=== PATIENT | female | born 1960 | race Caucasian/White ===

== ENCOUNTER → 2019-08-06 14:43 | Outpatient (CLI) | payer OTHER, SELFPAY ==
--- NOTE | 2019-08-06 | DI.MG.S_ITS ---
UNILATERAL LEFT DIGITAL DIAGNOSTIC MAMMOGRAM 3D/2D WITH ADDITIONAL VIEWS: 08/06/2019 CLINICAL: Additional evaluation requested from prior study. Comparison is made to exam dated: 06/29/2019 mammogram - [facility]. There are scattered fibroglandular elements in left breast. There is an oval 6 mm mass in the left breast at 2 o'clock middle depth. This is confirmed with spot compression, but not convincingly seen in other additional views. No other significant masses or calcifications are seen in the breast. IMPRESSION: INCOMPLETE: NEEDS ADDITIONAL IMAGING EVALUATION The oval mass in the left breast is indeterminate. An ultrasound is recommended. This was performed immediately following this exam. This exam was interpreted at Station ID: [id number]. NOTE: For mammograms, a report in lay terms will be sent to the patient. Approximately 15% of breast malignancies will not be visualized mammographically. In the management of a palpable breast mass, a negative mammogram must not discourage biopsy of a clinically suspicious lesion. Electronically Signed By: Jina paz/:08/06/2019 16:23:52 ACR BI-RADS Category 0: Incomplete 3340F
--- NOTE | 2019-08-06 | DI.US.S_ITS ---
LIMITED ULTRASOUND OF LEFT BREAST: 08/06/2019 CLINICAL: Additional evaluation requested from prior study. Comparison is made to exams dated: 08/06/2019 mammogram [facility] and 06/29/2019 mammogram - [facility]. Color flow and real-time ultrasound of the left breast 2 o'clock region were performed. Rose scale images of the real-time examination were reviewed. There is a benign 0.5 cm x 0.2 cm x 0.2 cm oval lymph node in the subdermal left breast at 2 o'clock middle depth 7 cm from the nipple. This oval lymph node displays fatty hilum. This correlates with mammography findings. Color flow imaging demonstrates that there is no vascularity present. IMPRESSION: BENIGN There is no sonographic evidence of malignancy. The 0.5 cm x 0.2 cm x 0.2 cm subdermal oval lymph node in the left breast is benign. Return to annual mammogram screening schedule is recommended. Findings and recommendations were conveyed to the patient at time of exam. This exam was interpreted at Station ID: [id number]. Electronically Signed By: Jina paz/:08/06/2019 16:25:40 letter sent: Normal Exam Ultrasound BI-RADS: 2 Benign
== END ==
PROVIDERS: Visit Provider Family Medicine
DX: R92.8 Other abnormal and inconclusive findings on diagnostic imaging of breast (principal)
CPT/HCPCS: 76642; 77065; G0279

== ENCOUNTER → 2020-08-30 12:22 | Outpatient (CLI) | payer OTHER, SELFPAY ==
--- NOTE | 2020-08-30 | DI.MG.S_ITS ---
BILATERAL DIGITAL SCREENING MAMMOGRAM 3D/2D WITH CAD: 08/30/2020 CLINICAL: Routine screening. Comparison is made to exams dated: 06/29/2019 mammogram - [facility], 08/06/2019 mammogram, and 08/06/2019 ultrasound [facility]. There are scattered fibroglandular elements in both breasts. Current study was also evaluated with a Computer Aided Detection (CAD) system. No significant masses, calcifications, or other findings are seen in either breast. There has been no significant interval change. IMPRESSION: NEGATIVE There is no mammographic evidence of malignancy. A 1 year screening mammogram is recommended. This exam was interpreted at Station ID: [id number]. NOTE: For mammograms, a report in lay terms will be sent to the patient. Approximately 15% of breast malignancies will not be visualized mammographically. In the management of a palpable breast mass, a negative mammogram must not discourage biopsy of a clinically suspicious lesion. Electronically Signed By: Harish moura/tru:08/30/2020 13:02:01 letter sent: Normal Exam ACR BI-RADS Category 1: Negative 3341F
== END ==
PROVIDERS: PCP Student in an Organized Health Care Education/Training Program; Referring Provider Student in an Organized Health Care Education/Training Program; Visit Provider Student in an Organized Health Care Education/Training Program
DX: Z12.31 Encounter for screening mammogram for malignant neoplasm of breast (principal); M85.852 Other specified disorders of bone density and structure, left thigh; Z78.0 Asymptomatic menopausal state; E07.9 Disorder of thyroid, unspecified; Z87.891 Personal history of nicotine dependence
CPT/HCPCS: 77063; 77067; 77080

== ENCOUNTER 2020-09-12 16:18 | Emergency (ER) | payer OTHER, SELFPAY ==
[2020-09-12 16:20] VITALS: BP 222/115; PULSE 68; RESP 18; TEMP 36.9; O2SAT 100
--- NOTE | 2020-09-12 16:41 | DI.RAD.S_ITS ---
PROCEDURE: XR SHOULDER LT MIN 2V INDICATIONS: shoulder pain TECHNIQUE: 3 views of the shoulder were acquired. COMPARISON: None. FINDINGS: Bones: No fractures or dislocations. No suspicious bony lesions. Visualized ribs appear intact. Soft tissues: No suspicious soft tissue calcifications. IMPRESSION: Mild arthritic change is seen at the AC joint. No trauma is found. Dictated by: Krishna Chavez M.D. on 09/12/2020 at 16:54 Approved by: Krishna Chavez M.D. on 09/12/2020 at 16:55
--- NOTE | 2020-09-12 17:26 | ED.UPPEXIN ---
HPI - Extremity Injury (Upper) General Chief Complaint: Extremity Injury, Upper Stated Complaint: SEVERE LEFT SHOULDER PAIN Time Seen by Provider: 09/12/20 17:26 Source: patient and family () Mode of arrival: Ambulatory Limitations: no limitations History of Present Illness HPI narrative: This is a 60-year-old female who comes in with complaint of left shoulder pain. Patient states she noticed a knot by her ?Raman? and indicates medial to her left shoulder blade. She states that is been present for about a week. Today she was taking a shower when she lifted her arm up suddenly washing her hair and felt a pop feeling and had immediate pain that dropped her to her knees. Patient states the pain is radiating from that area in her shoulder part way down her arm. She states it feels like ?a stinger.? Patient states she has some tingles in her fingers but no numbness. 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 She does have increased pain when she flexes and extends her fingers. Any gravity pulling on her shoulder is significantly painful. Patient also states rotating her head to the right and stretching it or side bending increases her pain. If she rotates towards the left and side bends towards the side of pain this improves it. Laying flat is more comfortable than being upright and any pull or tug on her arm is significantly uncomfortable. Patient has not appreciated any skin changes. She has not had any other trauma recently. She had a shoulder injury in her 20s but has not chronically had issues. Patient has a history of gastric bypass, she takes levothyroxine. She has a history of hypertension but states she has been off medications. At her most recent established visit a month ago she was not hypertensive. Related Data Home Medications Medication Instructions Recorded Confirmed levothyroxine 112 mcg tablet 112 mcg PO DAILY 09/12/20 09/12/20 Previous Rx's Medication Instructions Recorded cyclobenzaprine 10 mg tablet 10 mg PO TID PRN #14 tab 09/12/20 lidocaine 5 % topical patch 1 patch TOPICAL DAILY PRN #15 ea 09/12/20 ondansetron HCl [Zofran] 4 mg PO Q6H PRN #10 tab 09/12/20 oxycodone 5 mg PO Q6H PRN #14 tab 09/12/20 Allergies Allergy/AdvReac Type Severity Reaction Status Date / Time Penicillins AdvReac Intermediate Verified 09/12/20 16:47 Review of Systems Review of Systems ROS Unobtainable: All systems reviewed & are unremarkable except as noted in HPI and below Patient History Social History Smoking Status: Never smoker Smoking Status: Never smoker alcohol intake frequency: a few times a month Substance Use Type: does not use Exam Narrative Exam Narrative: GENERAL: Alert and oriented x three, thin well-appearing female in moderate distress. HEENT: Head normocephalic, atraumatic, EOMI, pupils reactive, face symmetric, moist mucous membranes NECK: Supple, full range of motion CARDIOVASCULAR: Regular rate and rhythm without murmurs, rubs or gallops. RESPIRATORY: Breath sounds equal bilaterally, no wheezes rales or rhonchi. ABDOMEN: Soft, nontender. Normoactive bowel sounds all 4 quadrants. No guarding or rebound, rigidity, no mass : No CVA tenderness BACK: No cervical, thoracic or lumbar vertebral point tenderness. Patient has decreased range of motion. Patient's gait is [antalgic/normal]. Muscle strength is 5/5 in upper extremities, copy lathe operator equal bilaterally. 2+ radial pulses bilaterally. Patient sensation intact bilaterally. EXTREMITIES: Patient has some tenderness over the distal shoulder but also in the last back just medial to the scapula patient has some point tenderness with radiation up into the shoulder area. There is no skin changes noted. There is some muscle tightness appreciated. There is no warmth, there is no erythema. Patient does have increased pain with movement at the shoulder itself. She also has increased pain with rotation of the neck to the right as well as side bending to the right. It is improved with rotation to the left and side bending to the left. Patient does not have any bony tenderness in the hand, forearm or elbow. NEUROLOGICAL: Cranial nerves II through XII grossly intact. Moving all extremities SKIN: Warm, dry, no petechiae, no rashes or lesions. Initial Vital Signs Initial Vital Signs: Vital Signs Temperature 98.4 F 09/12/20 16:20 Pulse Rate 68 09/12/20 16:20 Respiratory Rate 18 09/12/20 16:20 Blood Pressure 222/115 H 09/12/20 16:20 Pulse Oximetry 100 09/12/20 16:20 Course Orders Ordered: ED Orders 09/12/20 16:41 XR shoulder LT min 2V Stat 09/12/20 17:47 EKG-12 Lead Stat Discontinued Medications Hydromorphone HCl (Hydromorphone 1 Mg Inj) 1 mg IM NOW ONE Stop: 09/12/20 17:43 Last Admin: 09/12/20 17:50 Dose: 1 mg Documented by: MELLO Ondansetron HCl (Ondansetron 4 Mg Odt) 4 mg SL NOW ONE Stop: 09/12/20 17:44 Last Admin: 09/12/20 17:50 Dose: 4 mg Documented by: MELLO Vital Signs Vital signs: Vital Signs - 8 hr 09/12/20 16:20 09/12/20 17:30 09/12/20 17:35 Temperature 98.4 F Pulse Rate 68 60 59 L Respiratory Rate 18 15 Blood Pressure 222/115 H 197/89 H Pulse Oximetry 100 100 100 09/12/20 18:00 09/12/20 18:01 09/12/20 18:30 Temperature Pulse Rate 58 L 54 L 54 L Respiratory Rate Blood Pressure 189/87 H 194/91 H Pulse Oximetry 100 100 99 MDM - Extremity Injury (Upper) Imaging Data Extremity x-ray #1: Radiologist's Impression: [address] [id number] ReportSigned Patient: Sofie De Santiago [facility]#: [id number]: 9Acct:[id number]/Sex: 60 / FDate of Service: 09/12/20Loc: EDAccession Number: [id number] Procedure: XR shoulder LT min 2V Ordering Provider: Crista Manning D.O. PROCEDURE: XR SHOULDER LT MIN 2V INDICATIONS: shoulder pain TECHNIQUE: 3 views of the shoulder were acquired. COMPARISON: None. FINDINGS: Bones: No fractures or dislocations. No suspicious bony lesions. Visualized ribs appear intact. Soft tissues: No suspicious soft tissue calcifications. IMPRESSION: Mild arthritic change is seen at the AC joint. No trauma is found. Dictated by: Krishna Chavez M.D. on 09/12/2020 at 16:54 Approved by: Krishna Chavez M.D. on 09/12/2020 at 16:55 ECG Data Attestation: I personally reviewed and interpreted this ECG as follows: Prior ECG tracings: not available for review Interpretation: Bradycardia rate of 52, P are 126, QRS 88 QTC of 401. No ST elevation or depression is appreciated. Patient does not have priors for comparison. MDM Narrative Medical decision making narrative: This is a 60-year-old female comes in with reproducible scapular and shoulder pain. Patient is quite uncomfortable. No obvious ligamentous or tendon issues. I suspect more likely muscular in cause but possibly could be nerve involvement. No red flag symptoms at this time. Patient had a Toradol and a lidocaine patch as well as muscle relaxer earlier today with minimal improvement after she had been into the urgent care. Was given IM narcotics here with some improvement. She is also hypertensive which has been slowly improving. Patient has a history of hypertension although she states that her last physician's visit she was normotensive. She has follow-up on with her primary care and was encouraged to chat with them to follow up with her blood pressure as well. Discharge Plan Departure Patient Disposition: Home Clinical Impression: Left shoulder pain Instructions: DI for Shoulder Pain Activity Restrictions/Additional Instructions: Follow up with primary care physician in the next week for recheck. Take medication as prescribed, this medication can make you sleepy do not drive, perform hazardous activities or make any major decisions while taking this medication. You may take this medication with her other prescribed medications including her lidocaine patch. You may take tylenol up to 1000mg every 8 hours as needed for pain along with narcotic pain medication and zofran. Make sure taking a stool softener while taking narcotics as they will make you constipated. Return to the ER for fevers, new or worsening chest pain, shortness of breath, lightheadedness or passing out, new weakness, loss of sensation, inability to copy lathe operator for move her arm or other new or concerning symptoms. Prescriptions: New oxycodone 5 mg tablet 5 mg PO Q6H PRN (Reason: pain) Qty: 14 RF: 0 ondansetron HCl [Zofran] 4 mg tablet 4 mg PO Q6H PRN (Reason: nausea and vomiting) Qty: 10 RF: 0 No Action cyclobenzaprine 10 mg tablet 10 mg PO TID PRN (Reason: muscle spasm) Qty: 14 RF: 0 lidocaine 5 % adhesive patch,medicated 1 patch topical DAILY PRN (Reason: pain) Qty: 15 RF: 0 levothyroxine [Levoxyl] 112 mcg tablet 112 mcg PO DAILY RF: 0 Referrals: Montserrat Alonso MD [Primary Care Provider] -
[2020-09-12 17:30] VITALS: BP 197/89; PULSE 60; RESP 15; O2SAT 100
[2020-09-12 17:35] VITALS: PULSE 59; O2SAT 100
[2020-09-12] MEDS: HYDROMORPHONE 1 MG INJ IM (17:50)
[2020-09-12] MEDS: ONDANSETRON 4 MG ODT SL (17:50)
[2020-09-12 18:00] VITALS: PULSE 58; O2SAT 100
[2020-09-12 18:01] VITALS: BP 189/87; PULSE 54; O2SAT 100
[2020-09-12 18:30] VITALS: BP 194/91; PULSE 54; O2SAT 99
== END 2020-09-12 18:47 | disposition home or self-care (01) ==
PROVIDERS: Emergency Provider Emergency Medicine; PCP Student in an Organized Health Care Education/Training Program
DX: M25.512 Pain in left shoulder (principal); I10 Essential (primary) hypertension; R07.9 Chest pain, unspecified
CPT/HCPCS: 73030; 93005; 93010; 96372; 99283; 99284; J1170

== ENCOUNTER → 2020-10-06 09:06 | Outpatient (CLI) | payer OTHER, SELFPAY ==
--- NOTE | 2020-10-06 | DI.MRI.S_ITS ---
PROCEDURE: MR CERVICAL SPINE WO CON INDICATIONS: Radiculopathy, cervical region TECHNIQUE: Noncontrast sagittal T1 spin echo and T2 fast spin echo, sagittal STIR, foraminal oblique sagittal T2 fast spin echo, and axial gradient echo or T2 fast spin echo through the cervical spine. COMPARISON: None. FINDINGS: Image quality: Excellent. Alignment and Curvature: There is normal bony alignment. Bone Marrow: Marrow demonstrates normal overall signal. Spinal Cord: Visualized spinal cord has normal size and signal. No cerebellar tonsillar herniation. Paraspinous Soft Tissues: No paravertebral masses. Prevertebral soft tissues are normal in thickness. C2-C3: Loss of disc signal. No central stenosis. No neural foraminal narrowing. No neural compression. C3-C4: Loss of disc signal. Minimal, diffuse disc bulge. No central stenosis. No neural foraminal narrowing. No neural compression. C4-C5: Loss of disc signal and slight loss of disc height. Mild, diffuse disc bulge. Mild narrowing of the central canal. Mild bilateral facet hypertrophy. Mild right neural foraminal narrowing. No neural compression. C5-C6: Loss of disc signal and height. Mild to moderate diffuse disc bulge. Wwel-ga-sacsvjgh narrowing of the central canal. Mild bilateral facet hypertrophy. Moderate right and mild left neural foraminal narrowing. Severe right and mild left neural foraminal narrowing with slight compression of the exiting left C6 nerve root. C6-C7: Loss of disc signal and slight loss of disc height. Mild to moderate diffuse disc bulge. Cclj-wq-djlqxzaf narrowing of the central canal. No neural foraminal narrowing. No neural compression. C7-T1: Loss of disc signal and slight loss of disc height. Mild, diffuse disc bulge. Iwno-tu-rmlxnurw narrowing of the central canal. No neural foraminal narrowing. No neural compression. IMPRESSION: 1. Multilevel degenerative disc disease. 2. Multilevel facet arthropathy. 3. No severe central canal narrowing. 4. Severe right C5-C6 neural foraminal narrowing with compression of the exiting right C6 nerve root. Please correlate with clinical data. Dictated by: Nuria Posada MD, PhD on 10/06/2020 at 10:51 Approved by: Nuria Posada MD, PhD on 10/06/2020 at 11:26
== END ==
PROVIDERS: PCP Student in an Organized Health Care Education/Training Program; Referring Provider Student in an Organized Health Care Education/Training Program; Visit Provider Student in an Organized Health Care Education/Training Program
DX: M50.121 Cervical disc disorder at C4-C5 level with radiculopathy (principal); M47.22 Other spondylosis with radiculopathy, cervical region; M48.02 Spinal stenosis, cervical region
CPT/HCPCS: 72141

== ENCOUNTER → 2022-12-25 07:44 | Outpatient (CLI) | payer OTHER, SELFPAY ==
--- NOTE | 2022-12-25 | DI.MG.S_ITS ---
BILATERAL DIGITAL SCREENING MAMMOGRAM 3D/2D WITH CAD: 12/25/2022 CLINICAL: Routine screening. Comparison is made to exams dated: 08/30/2020 mammogram - and 06/29/2019 mammogram - [facility]. Both breasts are heterogeneously dense, which may obscure small masses (category c / 51-75% glandular tissue). Current study was also evaluated with a Computer Aided Detection (CAD) system. No significant masses, calcifications, or other findings are seen in either breast. There has been no significant interval change. IMPRESSION: NEGATIVE There is no mammographic evidence of malignancy. A 1 year screening mammogram is recommended. Based on the Tyrer Cuzick model (a risk assessment model) the patient's lifetime risk is 9.6% and her 10 year risk is 4.3%. According to the ACR, ACS, and NCCN guidelines, an annual breast MRI exam along with mammogram is recommended if the patient's lifetime risk is 20% or greater. This exam was interpreted at Station ID: [id number]. NOTE: For mammograms, a report in lay terms will be sent to the patient. Approximately 15% of breast malignancies will not be visualized mammographically. In the management of a palpable breast mass, a negative mammogram must not discourage biopsy of a clinically suspicious lesion. Electronically Signed By: Mary jolly/tru:12/25/2022 12:25:26 letter sent: Normal Exam ACR BI-RADS Category 1: Negative 3341F
== END ==
PROVIDERS: PCP Registered Nurse; Referring Provider Registered Nurse; Visit Provider Registered Nurse
DX: Z12.31 Encounter for screening mammogram for malignant neoplasm of breast (principal)
CPT/HCPCS: 77063; 77067

== ENCOUNTER → 2023-02-04 13:05 | Outpatient (CLI) | payer OTHER, SELFPAY ==
--- NOTE | 2023-02-04 13:06 | DI.RAD.S_ITS ---
PROCEDURE: XR FOOT RT MIN 3V INDICATIONS: Pain in right foot and 4th toe TECHNIQUE: 3 views of the foot were acquired. COMPARISON: None. FINDINGS: Bones: Mild cortical irregularity is seen at the 5th proximal phalangeal shaft that could represent a nondisplaced fracture. Bnar-ab-nbtosyfn degenerative changes at the 1st metatarsophalangeal joint and throughout the interphalangeal joints of the fingers. At least moderate degenerative changes are seen in the medial tarsometatarsal joints. Small plantar calcaneal enthesophyte. No suspicious bony lesions. Soft tissues: Soft tissue edema is seen in the forefoot. IMPRESSION: Suspected nondisplaced fracture of the 5th proximal phalangeal shaft. Recommend correlation for point tenderness. Approved by: Harish Vides M.D. on 02/04/2023 at 14:19
== END ==
PROVIDERS: PCP Registered Nurse; Referring Provider Physician Assistant; Visit Provider Physician Assistant
DX: M79.671 Pain in right foot (principal)
CPT/HCPCS: 73630

== ENCOUNTER → 2024-01-07 15:52 | Outpatient (CLI) | payer OTHER, SELFPAY ==
--- NOTE | 2024-01-07 15:53 | DI.MG.S_ITS ---
BILATERAL DIGITAL SCREENING MAMMOGRAM 3D/2D WITH CAD: 01/07/2024 CLINICAL: Routine screening. Comparison is made to exams dated: 12/25/2022 mammogram, 08/30/2020 mammogram - [facility], and 06/29/2019 mammogram - [facility]. Both breasts are heterogeneously dense, which may obscure small masses (category c / 51-75% glandular tissue). Current study was also evaluated with a Computer Aided Detection (CAD) system. No significant masses, calcifications, or other findings are seen in either breast. There has been no significant interval change. IMPRESSION: NEGATIVE There is no mammographic evidence of malignancy. A 1 year screening mammogram is recommended. Based on the Tyrer Cuzick model (a risk assessment model) the patient's lifetime risk is 9.3% and her 10 year risk is 4.3%. According to the ACR, ACS, and NCCN guidelines, an annual breast MRI exam along with mammogram is recommended if the patient's lifetime risk is 20% or greater. This exam was interpreted at Station ID: [id number]. NOTE: For mammograms, a report in lay terms will be sent to the patient. Approximately 15% of breast malignancies will not be visualized mammographically. In the management of a palpable breast mass, a negative mammogram must not discourage biopsy of a clinically suspicious lesion. Electronically Signed By: Yue Rivers M.D., Ph.D. rodger/tru:01/08/2024 13:08:20 letter sent: Normal Exam ACR BI-RADS Category 1: Negative 3341F
== END ==
LOC: MAMMO 15:52
PROVIDERS: PCP Registered Nurse; Referring Provider Registered Nurse; Visit Provider Registered Nurse
DX: Z12.31 Encounter for screening mammogram for malignant neoplasm of breast (principal); R92.333 Mammographic heterogeneous density, bilateral breasts
CPT/HCPCS: 77063; 77067

== ENCOUNTER → 2024-05-04 08:24 | Outpatient (CLI) | payer MEDICARE, SELFPAY ==
[2024-05-04 09:14] LABS: Add Manual Diff / Slide Review NO; Basophils Absolute Auto 0 /uL (0-100); Basophils Percent Auto 1.1 % (0-2); Eosinophils Absolute Auto 0 /uL (0-450); Eosinophils Percent Auto 1.4 % (2-4); Hematocrit 34.5 % (36-46); Hemoglobin 11.8 g/dL (12.0-16.0); Lymphocytes Absolute Auto 700 /uL (1100-4500); Lymphocytes Percent Auto 24.3 % (25-40); Mean Corpuscular HGB Conc 34.1 % (30-36); Mean Corpuscular Volume 99.6 fL (80-100); Monocytes Absolute Auto 400 /uL (0-900); Monocytes Percent Auto 13.5 % (3-14); Neutrophils Absolute Auto 1700 /uL (1500-7000); Neutrophils Percent Auto 59.7 % (50-75); Platelet Count 185 X10^3/uL (150-400); Red Blood Cell Count 3.46 X10^6/uL (4.0-5.2); Red Cell Distribution Width 12.8 % (11.6-14.8); White Blood Cell Count 2.8 X10^3/uL (4.5-11.0)
[2024-05-04 10:06] LABS: Alanine Aminotransferase 17 IU/L (<35); Albumin 3.8 g/dL (3.5-5.0); Albumin Globulin Ratio 1.5 (1.0-2.8); Alkaline Phosphatase 52 U/L (38-126); Aspartate Aminotransferase 24 IU/L (14-36); BUN Creatinine Ratio 23.4 (6-22); Bilirubin Total 0.4 mg/dL (0.2-1.3); Blood Urea Nitrogen 15 mg/dL (7-17); Calcium 9.1 mg/dL (8.4-10.2); Carbon Dioxide 31 mmol/L (22-32); Chloride 101 mmol/L (98-107); Estimated Glomerular Filt Rate > 60 mL/min (>60); Globulin 2.5 g/dL (1.7-4.1); Glucose 66 mg/dL (80-110); HEMOLYSIS < 15 (0-50); Sodium 136 mmol/L (137-145); Total Protein 6.3 g/dL (6.3-8.2)
[2024-05-04 10:16] LABS: Thyroid Stimulating Hormone 4.24 uIU/mL (0.47-4.68)
== END ==
PROVIDERS: PCP Family Medicine; Referring Provider Family Medicine; Visit Provider Family Medicine
DX: E03.9 Hypothyroidism, unspecified (principal); F32.A Depression, unspecified; Z86.39 Personal history of other endocrine, nutritional and metabolic disease; I10 Essential (primary) hypertension; D70.9 Neutropenia, unspecified; D64.9 Anemia, unspecified; R61 Generalized hyperhidrosis
CPT/HCPCS: 36415; 80053; 84443; 85025

== ENCOUNTER → 2024-06-03 09:44 | Outpatient (CLI) | payer MEDICARE, SELFPAY ==
[2024-06-03 10:49] LABS: Hematocrit 35.3 % (36-46); Mean Corpuscular HGB Conc 33.9 % (30-36); Mean Corpuscular Hemoglobin 33.7 PG (26-34); Mean Corpuscular Volume 99.4 fL (80-100); Platelet Count 210 X10^3/uL (150-400); Red Blood Cell Count 3.56 X10^6/uL (4.0-5.2); Red Cell Distribution Width 12.9 % (11.6-14.8); White Blood Cell Count 3.3 X10^3/uL (4.5-11.0)
[2024-06-03 10:51] LABS: Reticulocyte Count, Percent 0.6 % (1.1-2.6)
[2024-06-03 11:06] LABS: HEMOLYSIS < 15 (0-50); Iron 97 ug/dL (37-170)
[2024-06-03 11:07] LABS: Neutrophils Absolute Manual 2211 /uL (3000-5900); RBC Morphology Normal Morphology; Total Cells Counted 100
[2024-06-03 11:14] LABS: Transferrin 260 mg/dL (206-381)
[2024-06-03 11:26] LABS: Percent Iron Saturation 33 % (15-50); Total Iron Binding Capacity 290 ug/dL (265-497)
== END ==
PROVIDERS: PCP Family Medicine; Referring Provider Family Medicine; Visit Provider Family Medicine
DX: D70.9 Neutropenia, unspecified (principal); D64.9 Anemia, unspecified; Z86.2 Personal history of diseases of the blood and blood-forming organs and certain disorders involving the immune mechanism
CPT/HCPCS: 36415; 83540; 83550; 85025; 85045

== ENCOUNTER → 2024-11-25 11:08 | Outpatient (CLI) | payer MEDICARE, SELFPAY ==
--- NOTE | 2024-11-25 11:09 | DI.RAD.S_ITS ---
PROCEDURE: XR HIP W PEL IF DONE SIMRAN MIN 4V INDICATIONS: Right hip pain; suspect OA TECHNIQUE: AP pelvis with lateral view(s) of the bilateral hip(s). COMPARISON: None. FINDINGS: Bones: No fractures or dislocations. Mild to moderate osteoarthritic degenerative change of the bilateral hips includes joint space narrowing, marginal osteophytosis and acetabular subchondral sclerosis. Pelvic ring appears intact. No suspicious bony lesions. Soft tissues: The visualized bowel gas pattern is normal. No suspicious soft tissue calcifications. IMPRESSION: Mild to moderate degenerative change of the bilateral hips without evidence of acute bony abnormality. Dictated by: Fidel Shepherd M.D. on 11/25/2024 at 14:52 Approved by: Fidel Shepherd M.D. on 11/25/2024 at 14:53
== END ==
PROVIDERS: PCP Family Medicine; Referring Provider Physician Assistant; Visit Provider Physician Assistant
DX: M25.551 Pain in right hip (principal)
CPT/HCPCS: 73522

== ENCOUNTER → 2025-03-01 09:36 | Outpatient (CLI) | payer MEDICARE, SELFPAY ==
--- NOTE | 2025-03-01 09:38 | DI.RAD.S_ITS ---
PROCEDURE: XR HIP W PEL IF DONE LT 2V INDICATIONS: Rule out fracture TECHNIQUE: AP pelvis with lateral view(s) of the left hip(s). COMPARISON: [facility], CR, XR HIP W PEL IF DONE SIMARN 3TO4V, 11/25/2024, 10:31. FINDINGS: Bones: No fractures or dislocations. Pelvic ring appears intact. No suspicious bony lesions. Soft tissues: The visualized bowel gas pattern is normal. No suspicious soft tissue calcifications. IMPRESSION: No acute bony abnormality. If symptoms persist with conservative management, consider cross-sectional imaging such as CT or MRI. Approved by: Yue Rivers M.D.,Ph.D. on 03/01/2025 at 11:06
== END ==
PROVIDERS: PCP Family Medicine; Referring Provider Chiropractor; Visit Provider Chiropractor
DX: S76.012A Strain of muscle, fascia and tendon of left hip, initial encounter (principal); X58.XXXA Exposure to other specified factors, initial encounter
CPT/HCPCS: 73502

== ENCOUNTER → 2025-03-08 08:16 | Outpatient (CLI) | payer MEDICARE, SELFPAY ==
--- NOTE | 2025-03-08 08:18 | DI.MG.S_ITS ---
MM screening mammo BI: 03/08/2025. BI-RADS: 1 CLINICAL: 65-year old female for bilateral screening mammogram. Tyrer-Cuzick lifetime risk of 4.8%. No personal or first-degree family history of breast cancer. PRIOR EXAMS 01/07/2024, 12/25/2022, 08/30/2020, 08/06/2019. MAMMOGRAPHY TECHNIQUE: 2D and 3D (tomosynthesis) digital mammographic views obtained, with additional images as needed for full coverage. Current study was also evaluated with a Computer Aided Detection (CAD) system. DENSITY C. The breasts are heterogeneously dense, which may obscure small masses. MAMMOGRAPHY FINDINGS Bilateral: No suspicious mass, asymmetry, microcalcification, or other abnormality seen. IMPRESSION: * No evidence of malignancy. RECOMMENDATIONS Bilateral * Annual screening mammography. OVERALL ASSESSMENT CATEGORY BI-RADS-1: Negative. The [employer] recommends annual screening mammography beginning at age 40 for women with average risk of breast cancer. ELECTRONICALLY SIGNED: Ana Lopes M.D. on 03/08/2025 at 09:12:34 AM PT Interpreting Station ID: [id number]
== END ==
PROVIDERS: PCP Family Medicine; Referring Provider Family Medicine; Visit Provider Family Medicine
DX: Z12.31 Encounter for screening mammogram for malignant neoplasm of breast (principal); R92.333 Mammographic heterogeneous density, bilateral breasts
CPT/HCPCS: 77063; 77067

== ENCOUNTER → 2025-07-14 15:07 | Outpatient (CLI) | payer MEDICARE, SELFPAY ==
--- NOTE | 2025-07-14 15:08 | DI.MRI.S_ITS ---
PROCEDURE: MR HIP LT WO CON INDICATIONS: Chronic left hip pain TECHNIQUE: Noncontrast coronal T1 spin echo and STIR through the bony pelvis. Coronal and axial T2 fast spin echo with fat saturation, sagittal T1 spin echo, and oblique axial T2 fast spin echo with fat saturation through the hip. COMPARISON: None. FINDINGS: Image quality: Excellent. Bones and joints: Mxga-st-dedrutfu bilateral hip joint osteoarthritic changes are seen with superior joint space narrowing, subchondral sclerosis and small marginal osteophyte formation. No marrow edema. No intraosseous lesions or fractures. No avascular necrosis of the femoral heads. The visualized lower lumbar spine appears normally aligned. Tendons and ligaments: Tendinosis and low-grade partial-thickness tear involving distal left gluteus medius tendon at its insertion on greater trochanter is seen. Distal left gluteus minimus tendinosis is also noted. Small amount of fluid within left trochanteric bursa concerning for low-grade bursitis. The nearby proximal iliotibial band also appears intact. The iliopsoas tendon appears intact, without adjacent bursal fluid collections or evidence for impingement syndrome. The origin of the hamstring tendon is intact at the ischial tuberosity. Labrum and cartilage: There is diffuse thinning of articulating cartilage over left femoral head. Fraying of posterior superior acetabular labrum with T2 hyperintense signal is seen concerning for posterior superior acetabular labral tear. Soft tissues: Visualized muscles demonstrate normal bulk and internal signal. Quadratus femoris muscle demonstrates no internal edema to suggest ischiofemoral impingement. The proximal sciatic neurovascular bundle appears normal adjacent to the hamstring tendons. No free pelvic fluid. Bladder wall thickness is normal. Genitourinary structures and bowel loops appear normal where visualized. IMPRESSION: 1. Cpmd-hf-kwvmotny bilateral hip joint osteoarthritis. No fracture or dislocation. No avascular necrosis of femoral head. 2. Low-grade partial-thickness tear involving distal left gluteus medius tendon at its insertion on greater trochanter. Distal left gluteus minimus tendinosis. Small amount of fluid within left trochanteric bursa concerning for low-grade bursitis. No other muscle or tendon signal abnormalities. 3. Suggestion of posterior superior left acetabular labral tear. Dictated by: Phillip Aviles M.D. on 07/15/2025 at 15:44 Approved by: Phillip Aviles M.D. on 07/15/2025 at 15:47
--- NOTE | 2025-07-14 15:08 | DI.MRI.S_ITS ---
Juliette manzanares ROCEDURE: MR FOOT RT WO CON INDICATIONS: chronic right foot pain TECHNIQUE: Multiphasic, multisequence MRI of the forefoot was performed, without intravenous contrast administration. COMPARISON: None. FINDINGS: Image quality: Excellent. Bones and joints: Marrow edema involving medial sesamoid bone of 1st metatarsal head without discrete fracture line concerning for sesamoiditis. There is [id number] midfoot and forefoot joint osteoarthritis. Marrow edema involving medial, middle and lateral cuneiforms and adjacent 2nd and 3rd metatarsal bases are seen without discrete fracture line. Subcortical cystic changes are noted at 2nd and 3rd metatarsal bases and distal portion of the cuneiform. No metatarsal stress fractures. Subcortical cystic changes also noted in medial aspect of 1st metatarsal head, lateral aspect of 5th metatarsal head and 1st metatarsal base. No suspicious bony lesions. Soft tissues: The visualized plantar foot muscles demonstrate normal signal and bulk. Visualized flexor and extensor tendons appear intact, without tenosynovitis. The distal insertions of the peroneus brevis and longus tendons appear intact. The principal Lisfranc ligament appears intact. No soft tissue ganglion cysts or bursal fluid collections. Sagittal images demonstrate no evidence for plantar plate tears. IMPRESSION: 1. [id number] midfoot and forefoot joint osteoarthritis more notably involving TMT joints as above. No acute fracture or dislocation. Nonspecific edema involving cuneiform bones and 2nd and 3rd metatarsal bases suggestive of changes secondary to osteoarthritis or stress related changes. No metatarsal stress fractures. 2. Edema involving medial sesamoid of 1st metatarsal head concerning for sesamoiditis. 3. Extensor and flexor tendons are intact. Principal Lisfranc ligament is intact. Distal peroneus tendons are within normal limits. Dictated by: Phillip Aviles M.D. on 07/15/2025 at 15:36 Approved by: Phillip Aviles M.D. on 07/15/2025 at 15:40
== END ==
LOC: MRI 15:07
PROVIDERS: PCP Family Medicine; Referring Provider Family Medicine; Visit Provider Family Medicine
DX: M16.12 Unilateral primary osteoarthritis, left hip (principal); S76.012A Strain of muscle, fascia and tendon of left hip, initial encounter; M19.071 Primary osteoarthritis, right ankle and foot; R60.0 Localized edema; M79.671 Pain in right foot; M25.552 Pain in left hip
CPT/HCPCS: 73718; 73721